=== PATIENT | female | born 1935 | race African-American/Black ===

== ENCOUNTER 2017-03-17 10:19 | Inpatient (IN) | payer MEDICARE, MEDICAID ==
[~2017-03-17] VITALS: Ht 162.6 cm; Wt 87.1 kg
[~2017-03-17 10:19] MED LIST: ACET-3161 PO; DOCU-150 PO; FERR-63 PO; LISI40TA4 PO; METF500T4 PO
[2017-03-17] MEDS ORDERED: FUROSEMIDE 40MG/4ML VIAL IV STA (10:51)
[2017-03-17 11:30] LABS: BASOPHILS % 1.2 % (0.0-2.0); EOSINOPHILS % 1.3 % (0.0-5.0); HEMATOCRIT. 30.6 % (36.0-48.0); LYMPHOCYTES % 10.7 % (20.0-50.0); MEAN CORPUSCULAR HEMOGLOBIN 28.1 pg (28.0-32.0); MEAN CORPUSCULAR VOLUME 86.5 fL (81.0-99.0); MONOCYTES % 6.3 % (2.0-8.0); NEUTROPHILS % 80.5 % (40.0-76.0); PLATELET 185 x1000/uL (130-400); RED BLOOD CELL COUNT 3.54 mill/uL (4.2-5.4); RED CELL DISTRIBUTION WIDTH 15.5 % (11.6-14.6)
[2017-03-17 11:38] LABS: CHLORIDE 110 mEq/L (98-107)
[2017-03-17 11:39] LABS: INR 1.1; PARTIAL THROMBOPLASTIN TIME 24.4 sec (23.4-31.0); PROTHROMBIN TIME 11.1 sec (9.4-11.6)
[2017-03-17 11:49] LABS: CARBON DIOXIDE 25 mEq/L (21-32); TROPONIN I < 0.02 ng/mL (0.00-0.04)
[2017-03-17] MEDS ORDERED: ACETAMINOPHEN 325MG TABLET PO ONE (14:00)
[2017-03-17 14:31] LABS: CLARITY URINE CLEAR (CLEAR); COLOR URINE YELLOW (YELLOW); GLUCOSE URINE NEGATIVE (NEGATIVE); KETONES URINE NEGATIVE (NEGATIVE); LEUKOCYTE ESTERASE URINE 3+ (NEGATIVE); NITRITE URINE POSITIVE (NEGATIVE); OCCULT BLOOD URINE TRACE (NEGATIVE); PROTEIN URINE NEGATIVE (NEGATIVE); SPECIFIC GRAVITY URINE 1.008 (1.005-1.030); UROBILINOGEN URINE 0.2 E.U./dL (0.2-1.0)
[2017-03-17] MEDS ORDERED: DILTIAZEM HCL 5MG/ML 5ML VIAL IV PRN (15:30)
[2017-03-17] MEDS ORDERED: DEXTROSE 50% WATER 50ML SYRINGE IV PRN (15:30)
[2017-03-17 16:30] VITALS: BP 113/65
[2017-03-17] MEDS ORDERED: DOCUSATE SODIUM 100MG CAPSULE PO PRN (16:45)
[2017-03-17] MEDS ORDERED: ONDANSETRON HCL 4MG/2ML VIAL IV PRN (17:00)
[2017-03-17] MEDS: BLOOD SUGAR DIAGNOSTIC STRIP TEST SCH ×3 (17:00→21:15)
[2017-03-17] MEDS ORDERED: ACETAMINOPHEN WITH CODEINE 300/30MG TABLET PO SCH (17:00)
[2017-03-17] MEDS: FERROUS SULFATE 325MG TABLET PO SCH (17:59)
[2017-03-17] MEDS: FUROSEMIDE 40MG/4ML VIAL IVP SCH (17:59)
[2017-03-17] MEDS: APIXABAN 5 MG TABLET PO SCH (17:59)
[2017-03-17] MEDS: INSULIN LISPRO 100 UNITS/ML SUBCUT SCH ×2 (18:07→21:15)
[2017-03-17 20:00] VITALS: BP 139/64
[2017-03-17] MEDS: CARVEDILOL 6.25 MG TABLET PO SCH (21:14)
[2017-03-17] MEDS: ATORVASTATIN CALCIUM 20MG TABLET PO SCH (21:14)
[2017-03-17] MEDS: LISINOPRIL 20MG TABLET PO SCH (21:14)
[2017-03-18] VITALS: BP 106/49
[2017-03-18 04:00] VITALS: BP 122/58
[2017-03-18] MEDS: BLOOD SUGAR DIAGNOSTIC STRIP TEST SCH ×3 (06:20→20:45)
[2017-03-18 07:18] VITALS: BP 105/66
[2017-03-18] MEDS: INSULIN LISPRO 100 UNITS/ML SUBCUT SCH ×3 (07:23→20:46)
[2017-03-18] MEDS: CARVEDILOL 6.25 MG TABLET PO SCH ×2 (09:00→20:44)
[2017-03-18] MEDS: LISINOPRIL 20MG TABLET PO SCH ×2 (09:00→20:44)
[2017-03-18] MEDS ORDERED: LISINOPRIL 40MG TABLET PO SCH (09:00)
[2017-03-18] MEDS ORDERED: ENOXAPARIN 40MG/0.4ML SYR SUBCUT ONE (09:00)
[2017-03-18 09:31] LABS: BASOPHILS % 1.2 % (0.0-2.0); HEMOGLOBIN. 10.2 g/dL (12.0-16.0); LYMPHOCYTES % 14.4 % (20.0-50.0); MEAN CORPUSCULAR VOLUME 87.8 fL (81.0-99.0); MEAN PLATELET VOLUME 9.5 fl (7.4-10.4); MONOCYTES % 7.9 % (2.0-8.0); NEUTROPHILS % 73.5 % (40.0-76.0); PLATELET 194 x1000/uL (130-400); RED BLOOD CELL COUNT 3.65 mill/uL (4.2-5.4); RED CELL DISTRIBUTION WIDTH 15.5 % (11.6-14.6)
[2017-03-18 09:56] LABS: CARBON DIOXIDE 27 mEq/L (21-32); TROPONIN I < 0.02 ng/mL (0.00-0.04)
[2017-03-18 09:57] LABS: CHLORIDE 107 mEq/L (98-107)
[2017-03-18] MEDS: OMEPRAZOLE 20MG CAPSULE EXTENDED RELEASE PO SCH (09:57)
[2017-03-18] MEDS: FUROSEMIDE 40MG/4ML VIAL IVP SCH ×2 (09:59→17:27)
[2017-03-18] MEDS: ASPIRIN 81MG EC TABLET PO SCH (09:59)
[2017-03-18] MEDS: FERROUS SULFATE 325MG TABLET PO SCH ×2 (09:59→17:27)
[2017-03-18] MEDS: APIXABAN 5 MG TABLET PO SCH ×2 (10:00→17:27)
[2017-03-18] MEDS: LACTULOSE 20G/30ML UDC PO SCH (10:03)
[2017-03-18] MEDS: LEVOFLOXACIN 500MG TABLET PO SCH (10:03)
[2017-03-18 12:00] VITALS: BP 145/64
[2017-03-18 16:00] VITALS: BP 136/52
[2017-03-18] MEDS: HYDROCODONE/ACETAMINOPHEN 5/325MG TABLET PO PRN (17:28)
[2017-03-18 20:00] VITALS: BP 127/57
[2017-03-18] MEDS: ATORVASTATIN CALCIUM 20MG TABLET PO SCH (20:44)
[2017-03-19] VITALS: BP 126/60
[2017-03-19 04:00] VITALS: BP 143/54
[2017-03-19 06:14] LABS: BASOPHILS % 0.9 % (0.0-2.0); EOSINOPHILS % 1.6 % (0.0-5.0); HEMATOCRIT. 28.9 % (36.0-48.0); HEMOGLOBIN. 9.3 g/dL (12.0-16.0); LYMPHOCYTES % 16.2 % (20.0-50.0); MEAN CORPUSCULAR VOLUME 86.8 fL (81.0-99.0); MEAN PLATELET VOLUME 9.1 fl (7.4-10.4); MONOCYTES % 8.9 % (2.0-8.0); NEUTROPHILS % 72.4 % (40.0-76.0); PLATELET 196 x1000/uL (130-400); RED BLOOD CELL COUNT 3.33 mill/uL (4.2-5.4); RED CELL DISTRIBUTION WIDTH 15.2 % (11.6-14.6)
[2017-03-19] MEDS: HYDROCODONE/ACETAMINOPHEN 5/325MG TABLET PO PRN ×2 (06:29→13:27)
[2017-03-19 06:39] LABS: CARBON DIOXIDE 29 mEq/L (21-32); CHLORIDE 107 mEq/L (98-107)
[2017-03-19] MEDS: BLOOD SUGAR DIAGNOSTIC STRIP TEST SCH ×4 (07:40→21:17)
[2017-03-19 08:00] VITALS: BP 113/48
[2017-03-19] MEDS: INSULIN LISPRO 100 UNITS/ML SUBCUT SCH ×4 (08:10→21:00)
[2017-03-19] MEDS: CARVEDILOL 6.25 MG TABLET PO SCH ×2 (09:07→21:00)
[2017-03-19] MEDS: ASPIRIN 81MG EC TABLET PO SCH (09:07)
[2017-03-19] MEDS: FERROUS SULFATE 325MG TABLET PO SCH ×4 (09:07→17:22)
[2017-03-19] MEDS: FUROSEMIDE 40MG/4ML VIAL IVP SCH ×2 (09:07→17:22)
[2017-03-19] MEDS: LISINOPRIL 20MG TABLET PO SCH ×2 (09:07→21:00)
[2017-03-19] MEDS: LACTULOSE 20G/30ML UDC PO SCH (09:07)
[2017-03-19] MEDS: APIXABAN 5 MG TABLET PO SCH ×2 (09:07→17:22)
[2017-03-19] MEDS: OMEPRAZOLE 20MG CAPSULE EXTENDED RELEASE PO SCH (09:08)
[2017-03-19 12:00] VITALS: BP 120/56
[2017-03-19] MEDS: LEVOFLOXACIN 500MG TABLET PO SCH (13:28)
[2017-03-19 16:00] VITALS: BP 112/52
[2017-03-19] MEDS: ACETAMINOPHEN 500MG TABLET PO PRN (17:22)
[2017-03-19 20:00] VITALS: BP 105/54
[2017-03-19] MEDS: ATORVASTATIN CALCIUM 20MG TABLET PO SCH (21:14)
[2017-03-20] VITALS: BP 118/64
[2017-03-20 04:00] VITALS: BP_SYST 146; BP_SYST 185; BP_DIAS 62; BP_DIAS 72
[2017-03-20 06:26] LABS: EOSINOPHILS % 0.2 % (0.0-5.0); HEMATOCRIT. 31.1 % (36.0-48.0); HEMOGLOBIN. 10.2 g/dL (12.0-16.0); MEAN CORPUSCULAR VOLUME 85.4 fL (81.0-99.0); MEAN PLATELET VOLUME 9.1 fl (7.4-10.4); MONOCYTES % 6.2 % (2.0-8.0); NEUTROPHILS % 79.6 % (40.0-76.0); PLATELET 217 x1000/uL (130-400); RED BLOOD CELL COUNT 3.64 mill/uL (4.2-5.4); RED CELL DISTRIBUTION WIDTH 15.3 % (11.6-14.6)
[2017-03-20 07:22] LABS: CARBON DIOXIDE 27 mEq/L (21-32); CHLORIDE 104 mEq/L (98-107)
[2017-03-20] MEDS: BLOOD SUGAR DIAGNOSTIC STRIP TEST SCH ×4 (07:43→20:35)
[2017-03-20 08:00] VITALS: BP 165/56
[2017-03-20] MEDS: FERROUS SULFATE 325MG TABLET PO SCH ×3 (08:51→17:52)
[2017-03-20] MEDS: OMEPRAZOLE 20MG CAPSULE EXTENDED RELEASE PO SCH (08:51)
[2017-03-20] MEDS: LISINOPRIL 20MG TABLET PO SCH ×2 (08:52→20:30)
[2017-03-20] MEDS: ASPIRIN 81MG EC TABLET PO SCH (08:52)
[2017-03-20] MEDS: CARVEDILOL 6.25 MG TABLET PO SCH ×2 (08:52→20:31)
[2017-03-20] MEDS: LACTULOSE 20G/30ML UDC PO SCH (08:53)
[2017-03-20] MEDS: FUROSEMIDE 40MG/4ML VIAL IVP SCH ×2 (08:53→17:52)
[2017-03-20] MEDS: APIXABAN 5 MG TABLET PO SCH ×2 (08:54→17:52)
[2017-03-20] MEDS: INSULIN LISPRO 100 UNITS/ML SUBCUT SCH ×4 (08:56→20:41)
[2017-03-20] MEDS: LEVOFLOXACIN 500MG TABLET PO SCH (10:06)
[2017-03-20] MEDS ORDERED: POTASSIUM CHLORIDE 20MEQ TABLET SR PO SCH (10:15)
[2017-03-20 12:00] VITALS: BP 114/66
[2017-03-20 16:00] VITALS: BP 157/56
[2017-03-20 20:00] VITALS: BP 137/56
[2017-03-20] MEDS: ATORVASTATIN CALCIUM 20MG TABLET PO SCH (20:30)
[2017-03-21] VITALS: BP 114/57
[2017-03-21 04:00] VITALS: BP 121/51
[2017-03-21] MEDS: ACETAMINOPHEN 500MG TABLET PO PRN (04:46)
[2017-03-21] MEDS: BLOOD SUGAR DIAGNOSTIC STRIP TEST SCH ×2 (06:04→13:12)
[2017-03-21 07:17] LABS: BASOPHILS % 2.1 % (0.0-2.0); EOSINOPHILS % 2.6 % (0.0-5.0); HEMATOCRIT. 30.2 % (36.0-48.0); HEMOGLOBIN. 9.9 g/dL (12.0-16.0); LYMPHOCYTES % 21.2 % (20.0-50.0); MEAN CORPUSCULAR HEMOGLOBIN 28.2 pg (28.0-32.0); MEAN CORPUSCULAR VOLUME 86.4 fL (81.0-99.0); MEAN PLATELET VOLUME 9.1 fl (7.4-10.4); MONOCYTES % 11.3 % (2.0-8.0); NEUTROPHILS % 62.8 % (40.0-76.0); PLATELET 182 x1000/uL (130-400); RED CELL DISTRIBUTION WIDTH 15.7 % (11.6-14.6)
[2017-03-21] MEDS: INSULIN LISPRO 100 UNITS/ML SUBCUT SCH ×2 (07:24→13:33)
[2017-03-21 07:36] VITALS: BP 124/62
[2017-03-21 07:47] LABS: CARBON DIOXIDE 31 mEq/L (21-32); CHLORIDE 105 mEq/L (98-107)
[2017-03-21] MEDS ORDERED: FAMOTIDINE 20MG TABLET PO SCH (09:00)
[2017-03-21] MEDS: APIXABAN 5 MG TABLET PO SCH (09:06)
[2017-03-21] MEDS: FUROSEMIDE 40MG/4ML VIAL IVP SCH (09:06)
[2017-03-21] MEDS: FERROUS SULFATE 325MG TABLET PO SCH ×2 (09:06→13:32)
[2017-03-21] MEDS: CARVEDILOL 6.25 MG TABLET PO SCH (09:06)
[2017-03-21] MEDS: LACTULOSE 20G/30ML UDC PO SCH (09:07)
[2017-03-21] MEDS: LISINOPRIL 20MG TABLET PO SCH (09:07)
[2017-03-21] MEDS: ASPIRIN 81MG EC TABLET PO SCH (09:07)
[2017-03-21] MEDS ORDERED: POTASSIUM CHLORIDE 20MEQ TABLET SR PO NR (10:30)
[2017-03-21] MEDS ORDERED: NITROFURANTOIN 100MG M/M CAPSULE PO SCH (11:00)
[2017-03-21 11:33] VITALS: BP 124/62
[2017-03-21 12:03] VITALS: BP 134/56
[2017-03-21 14:29] LABS: AMMONIA 49 uMol/L (<32)
[2017-03-22] MEDS ORDERED: POTASSIUM CHLORIDE 20MEQ TABLET SR PO SCH (09:00)
== END 2017-03-21 15:25 | disposition home health service (06) | DRG 291 ==
LOC: ER 12:47 → 7WST 14:51 → EDBEDREQ 14:52 → EDBEDREQTM 14:52 → ENRESERV 15:20
PROVIDERS: ADMIT Family Medicine Adult Medicine; ATTEND Family Medicine Adult Medicine
DX: I11.0 Hypertensive heart disease with heart failure (principal); J96.90 Respiratory failure, unspecified, unspecified whether with hypoxia or hypercapnia; E11.51 Type 2 diabetes mellitus with diabetic peripheral angiopathy without gangrene; I49.5 Sick sinus syndrome; R65.10 Systemic inflammatory response syndrome (SIRS) of non-infectious origin without acute organ dysfunction; E44.1 Mild protein-calorie malnutrition; I48.91 Unspecified atrial fibrillation; N39.0 Urinary tract infection, site not specified; I65.29 Occlusion and stenosis of unspecified carotid artery; I25.5 Ischemic cardiomyopathy; I25.10 Atherosclerotic heart disease of native coronary artery without angina pectoris; I50.23 Acute on chronic systolic (congestive) heart failure; I34.0 Nonrheumatic mitral (valve) insufficiency; D50.9 Iron deficiency anemia, unspecified; J45.909 Unspecified asthma, uncomplicated; B96.20 Unspecified Escherichia coli [E. coli] as the cause of diseases classified elsewhere; E78.00 Pure hypercholesterolemia, unspecified; E78.5 Hyperlipidemia, unspecified; I25.2 Old myocardial infarction; Z86.73 Personal history of transient ischemic attack (TIA), and cerebral infarction without residual deficits; Z95.810 Presence of automatic (implantable) cardiac defibrillator; Z89.512 Acquired absence of left leg below knee; Z89.612 Acquired absence of left leg above knee; Z95.1 Presence of aortocoronary bypass graft; Z68.33 Body mass index [BMI] 33.0-33.9, adult; Z79.01 Long term (current) use of anticoagulants
CPT/HCPCS: 36415; 51702; 71010; 80048; 80053; 81001; 82140; 82962; 83605; 83735; 83880; 84484; 85025; 85610; 85730; 87040; 87077; 87086; 87186; 93005; 96374; 99285; A6261; C1893; J1815; J1940

== ENCOUNTER → 2017-05-02 | Outpatient (CLI) | payer MEDICARE, MEDICAID | END | disposition home or self-care (01) | LOC: RAD 12:31 | PROVIDERS: ATTEND Specialist | DX: J90 Pleural effusion, not elsewhere classified (principal) | CPT/HCPCS: 71010 ==

== ENCOUNTER 2017-05-06 10:03 | Inpatient (IN) | payer MEDICARE, MEDICAID ==
[~2017-05-06] VITALS: Ht 162.6 cm; Wt 85.7 kg
[2017-05-06] MEDS ORDERED: ASPIRIN 81MG TABLET PO STA (10:13)
[2017-05-06] MEDS ORDERED: ONDANSETRON HCL 4MG/2ML VIAL IV STA (10:13)
[2017-05-06] MEDS ORDERED: MORPHINE SULFATE 4 MG/ML CPJ (NOT FOR IM USE) IV STA (10:13)
[2017-05-06] MEDS ORDERED: NITROGLYCERIN OINT 1GM/INCH UDPKT TD STA (10:13)
[2017-05-06] MEDS ORDERED: MORPHINE SULFATE 2 MG/ML CPJ (NOT FOR IM USE) IV ONE (10:45)
[2017-05-06 10:51] LABS: BASOPHILS % 1.4 % (0.0-2.0); HEMATOCRIT. 30.4 % (36.0-48.0); HEMOGLOBIN. 9.9 g/dL (12.0-16.0); LYMPHOCYTES % 14.6 % (20.0-50.0); MEAN CORPUSCULAR VOLUME 85.9 fL (81.0-99.0); MEAN PLATELET VOLUME 8.7 fl (7.4-10.4); MONOCYTES % 7.9 % (2.0-8.0); NEUTROPHILS % 74.1 % (40.0-76.0); PLATELET 218 x1000/uL (130-400); RED BLOOD CELL COUNT 3.54 mill/uL (4.2-5.4); RED CELL DISTRIBUTION WIDTH 15.7 % (11.6-14.6)
[2017-05-06 11:04] LABS: INR 1.1; PARTIAL THROMBOPLASTIN TIME 24.7 sec (23.4-31.0)
[2017-05-06 11:09] LABS: CARBON DIOXIDE 26 mEq/L (21-32); CHLORIDE 110 mEq/L (98-107); TROPONIN I < 0.02 ng/mL (0.00-0.04)
[2017-05-06] MEDS ORDERED: FUROSEMIDE 20MG/2ML VIAL IVP ONE (11:30)
[2017-05-06 14:10] VITALS: BP 135/71
[2017-05-06 14:30] VITALS: BP 135/71
[2017-05-06] MEDS ORDERED: ONDANSETRON HCL 4MG/2ML VIAL IV PRN (16:15)
[2017-05-06] MEDS ORDERED: CLONIDINE 0.1MG TABLET PO PRN (16:15)
[2017-05-06] MEDS ORDERED: HYDROCODONE/ACETAMINOPHEN 5/325MG TABLET PO PRN (16:15)
[2017-05-06] MEDS ORDERED: LORAZEPAM 2MG/ML CPJ IV PRN (16:15)
[2017-05-06] MEDS ORDERED: MORPHINE SULFATE 2 MG/ML CPJ (NOT FOR IM USE) IV PRN (16:15)
[2017-05-06] MEDS: ACETAMINOPHEN 325MG TABLET PO PRN (18:10)
[2017-05-06 20:00] VITALS: BP 132/73
[2017-05-06 23:18] LABS: CREATINE KINASE 19 IU/L (26-192); CREATINE KINASE MB FRACTION 0.8 ng/mL (0.5-3.6); TROPONIN I < 0.02 ng/mL (0.00-0.04)
[2017-05-07] VITALS: BP 144/72
[2017-05-07 04:00] VITALS: BP 118/80
[2017-05-07] MEDS: ACETAMINOPHEN 325MG TABLET PO PRN (04:14)
[2017-05-07] MEDS: ACETAMINOPHEN WITH CODEINE 300/30MG TABLET PO PRN ×2 (07:14→16:21)
[2017-05-07 08:00] VITALS: BP 116/46
[2017-05-07 08:04] LABS: CREATINE KINASE 18 IU/L (26-192); HDL CHOLESTEROL 34 mg/dL (40-59); LDL CHOLESTEROL 40 mg/dL (5-100)
[2017-05-07 08:05] LABS: CREATINE KINASE MB FRACTION 0.8 ng/mL (0.5-3.6); TROPONIN I < 0.02 ng/mL (0.00-0.04)
[2017-05-07] MEDS: METFORMIN HCL 500MG TABLET PO SCH ×2 (08:14→17:40)
[2017-05-07] MEDS: THIAMINE HCL 100MG TABLET PO SCH (08:19)
[2017-05-07] MEDS: ASPIRIN 81MG EC TABLET PO SCH (08:19)
[2017-05-07] MEDS: FERROUS SULFATE 325MG TABLET PO SCH (08:20)
[2017-05-07] MEDS: LISINOPRIL 40MG TABLET PO SCH (08:20)
[2017-05-07] MEDS ORDERED: REGADENOSON 0.4 MG/5 ML IV NR (09:00)
[2017-05-07 10:05] LABS: CLARITY URINE CLOUDY (CLEAR); COLOR URINE YELLOW (YELLOW); GLUCOSE URINE NEGATIVE (NEGATIVE); KETONES URINE NEGATIVE (NEGATIVE); LEUKOCYTE ESTERASE URINE 1+ (NEGATIVE); NITRITE URINE NEGATIVE (NEGATIVE); OCCULT BLOOD URINE 3+ (NEGATIVE); PROTEIN URINE 2+ (NEGATIVE); SPECIFIC GRAVITY URINE 1.023 (1.005-1.030)
[2017-05-07] MEDS ORDERED: DEXTROSE 50% WATER 50ML SYRINGE IV PRN (11:00)
[2017-05-07 12:00] VITALS: BP 110/45
[2017-05-07] MEDS: BLOOD SUGAR DIAGNOSTIC STRIP TEST SCH ×3 (12:25→20:24)
[2017-05-07] MEDS: INSULIN LISPRO 100 UNITS/ML SUBCUT SCH ×3 (12:40→20:24)
[2017-05-07 15:58] VITALS: BP 119/51
[2017-05-07 20:00] VITALS: BP 149/70
[2017-05-08] VITALS: BP 151/72
[2017-05-08 04:00] VITALS: BP 154/60
[2017-05-08] MEDS: ACETAMINOPHEN WITH CODEINE 300/30MG TABLET PO PRN (06:27)
[2017-05-08] MEDS: BLOOD SUGAR DIAGNOSTIC STRIP TEST SCH ×4 (06:27→20:45)
[2017-05-08] MEDS: INSULIN LISPRO 100 UNITS/ML SUBCUT SCH ×4 (06:29→21:22)
[2017-05-08 07:30] VITALS: BP 151/61
[2017-05-08] MEDS: METFORMIN HCL 500MG TABLET PO SCH ×2 (07:35→17:40)
[2017-05-08 07:40] LABS: BASOPHILS % 1.2 % (0.0-2.0); EOSINOPHILS % 1.2 % (0.0-5.0); HEMATOCRIT. 29.1 % (36.0-48.0); HEMOGLOBIN. 9.5 g/dL (12.0-16.0); LYMPHOCYTES % 15.5 % (20.0-50.0); MEAN CORPUSCULAR HEMOGLOBIN 28.3 pg (28.0-32.0); MEAN CORPUSCULAR VOLUME 86.4 fL (81.0-99.0); MEAN PLATELET VOLUME 9.1 fl (7.4-10.4); MONOCYTES % 6.4 % (2.0-8.0); NEUTROPHILS % 75.7 % (40.0-76.0); PLATELET 200 x1000/uL (130-400); RED BLOOD CELL COUNT 3.37 mill/uL (4.2-5.4); RED CELL DISTRIBUTION WIDTH 15.3 % (11.6-14.6)
[2017-05-08 08:21] LABS: CARBON DIOXIDE 25 mEq/L (21-32); CHLORIDE 108 mEq/L (98-107)
[2017-05-08 08:38] LABS: TROPONIN I < 0.02 ng/mL (0.00-0.04)
[2017-05-08] MEDS: ASPIRIN 81MG EC TABLET PO SCH (09:23)
[2017-05-08] MEDS: THIAMINE HCL 100MG TABLET PO SCH (09:23)
[2017-05-08] MEDS: FERROUS SULFATE 325MG TABLET PO SCH (09:23)
[2017-05-08] MEDS: LISINOPRIL 40MG TABLET PO SCH (09:23)
[2017-05-08 12:00] VITALS: BP 119/51
[2017-05-08 16:00] VITALS: BP 125/58
[2017-05-08 20:00] VITALS: BP 125/54
[2017-05-09] VITALS: BP 154/67
[2017-05-09 04:00] VITALS: BP 144/70
[2017-05-09] MEDS: BLOOD SUGAR DIAGNOSTIC STRIP TEST SCH ×3 (06:17→17:32)
[2017-05-09] MEDS: INSULIN LISPRO 100 UNITS/ML SUBCUT SCH ×3 (06:19→17:32)
[2017-05-09 07:04] LABS: BASOPHILS % 1.3 % (0.0-2.0); EOSINOPHILS % 1.8 % (0.0-5.0); HEMATOCRIT. 29.1 % (36.0-48.0); HEMOGLOBIN. 9.3 g/dL (12.0-16.0); LYMPHOCYTES % 16.9 % (20.0-50.0); MEAN CORPUSCULAR HEMOGLOBIN 27.7 pg (28.0-32.0); MEAN CORPUSCULAR VOLUME 86.5 fL (81.0-99.0); MEAN PLATELET VOLUME 8.9 fl (7.4-10.4); MONOCYTES % 8.8 % (2.0-8.0); NEUTROPHILS % 71.2 % (40.0-76.0); PLATELET 195 x1000/uL (130-400); RED BLOOD CELL COUNT 3.36 mill/uL (4.2-5.4); RED CELL DISTRIBUTION WIDTH 15.2 % (11.6-14.6)
[2017-05-09] MEDS: METFORMIN HCL 500MG TABLET PO SCH (07:40)
[2017-05-09 07:42] LABS: CARBON DIOXIDE 28 mEq/L (21-32); CHLORIDE 108 mEq/L (98-107); TROPONIN I < 0.02 ng/mL (0.00-0.04)
[2017-05-09 08:00] VITALS: BP 151/74
[2017-05-09] MEDS: THIAMINE HCL 100MG TABLET PO SCH (10:14)
[2017-05-09] MEDS: FERROUS SULFATE 325MG TABLET PO SCH (10:14)
[2017-05-09] MEDS: LISINOPRIL 40MG TABLET PO SCH (10:15)
[2017-05-09] MEDS: ASPIRIN 81MG EC TABLET PO SCH (10:15)
[2017-05-09] MEDS ORDERED: REGADENOSON 0.4 MG/5 ML IV ONE (12:34)
[2017-05-09 16:00] VITALS: BP 123/55
[2017-05-09 17:32] VITALS: BP 123/55
== END 2017-05-09 18:27 | disposition home or self-care (01) | DRG 292 ==
LOC: ER 11:15 → 8WST 11:16 → EDBEDREQ 11:21 → ENRESERV 13:08 → CANBEDREQ 13:19
PROVIDERS: ADMIT Internal Medicine Nephrology; ATTEND Internal Medicine Nephrology
DX: I11.0 Hypertensive heart disease with heart failure (principal); E44.1 Mild protein-calorie malnutrition; I27.20 Pulmonary hypertension, unspecified; E11.51 Type 2 diabetes mellitus with diabetic peripheral angiopathy without gangrene; I49.5 Sick sinus syndrome; I25.10 Atherosclerotic heart disease of native coronary artery without angina pectoris; I50.43 Acute on chronic combined systolic (congestive) and diastolic (congestive) heart failure; I25.5 Ischemic cardiomyopathy; I48.91 Unspecified atrial fibrillation; D50.9 Iron deficiency anemia, unspecified; E78.5 Hyperlipidemia, unspecified; I25.2 Old myocardial infarction; I34.0 Nonrheumatic mitral (valve) insufficiency; J45.909 Unspecified asthma, uncomplicated; Z86.73 Personal history of transient ischemic attack (TIA), and cerebral infarction without residual deficits; Z89.612 Acquired absence of left leg above knee; Z95.1 Presence of aortocoronary bypass graft; Z95.810 Presence of automatic (implantable) cardiac defibrillator; Z79.899 Other long term (current) drug therapy; Z68.32 Body mass index [BMI] 32.0-32.9, adult; Z89.512 Acquired absence of left leg below knee; R07.89 Other chest pain
CPT/HCPCS: 36415; 51702; 71010; 78452; 80048; 80053; 80061; 81001; 82550; 82553; 82962; 83690; 83735; 83880; 84100; 84443; 84484; 85025; 85610; 85730; 93005; 93017; 93306; 96374; 96375; 97163; 97166; 99291; A6261; A9500; J1815; J1940; J2060; J2270; J2405; J2785; A4315

== ENCOUNTER 2017-09-19 10:12 | Inpatient (IN) | payer MEDICARE, MEDICAID ==
[~2017-09-19] VITALS: Ht 157.5 cm; Wt 96.8 kg
[~2017-09-19 10:12] MED LIST changes: -DOCU-150 PO
[2017-09-19 10:53] LABS: BG BASE EXCESS 0.9 mmol/L (-2.0-2.0); BG CARBOXYHEMOGLOBIN 0.8 % (0.5-1.5); BG DEOXYHEMOGLOBIN 8.3 % (0.0-5.0); BG FRACTION INSPIRED OXYGEN 34; BG METHEMOGLOBIN 0.2 % (0.0-1.5); BG OXYGEN SATURATION 91.6 % (92.0-98.5); BG OXYHEMOGLOBIN 90.7 % (94.0-97.0); BG PCO2 58.3 mmHg (35.0-45.0); BG PH 7.299 (7.350-7.450); BG PO2 66.9 mmHg (75.0-100.0); BG SAMPLE SITE RIGHT BRACHIAL; BG TOTAL HEMOGLOBIN 9.4 g/dL (12.0-18.0); BG VENT MODE NASAL CANNULA
[2017-09-19 11:23] LABS: HEMOGLOBIN. 8.3 g/dL (12.0-16.0); MEAN CORPUSCULAR HEMOGLOBIN 28.1 pg (28.0-32.0); MEAN CORPUSCULAR VOLUME 88.6 fL (81.0-99.0); MEAN PLATELET VOLUME 9.1 fl (7.4-10.4); PLATELET 255 x1000/uL (130-400); RED BLOOD CELL COUNT 2.94 mill/uL (4.2-5.4); RED CELL DISTRIBUTION WIDTH 17.5 % (11.6-14.6)
[2017-09-19 11:29] LABS: INR 1.4; PROTHROMBIN TIME 14.8 sec (9.4-11.6)
[2017-09-19 11:35] LABS: CHLORIDE 103 mEq/L (98-107)
[2017-09-19 11:42] LABS: TROPONIN I < 0.02 ng/mL (0.00-0.04)
[2017-09-19] MEDS ORDERED: FUROSEMIDE 20MG/2ML VIAL IVP ONE (11:45)
[2017-09-19] MEDS ORDERED: ENALAPRIL 2.5MG/2ML VIAL 2ML IV ONE (11:45)
[2017-09-19 12:12] LABS: PLATELET ESTIMATE NORMAL
[2017-09-19] MEDS ORDERED: ACETAMINOPHEN 325MG TABLET PO ONE (14:00)
[2017-09-19] MEDS ORDERED: DOCUSATE SODIUM 100MG CAPSULE PO PRN (14:15)
[2017-09-19] MEDS ORDERED: MAGNESIUM/ALUMINUM HYDROXIDE/SIMETHICONE 30ML UDC PO PRN (14:15)
[2017-09-19] MEDS ORDERED: GUAIFENESIN 200MG/10ML SUGAR FREE UDC PO PRN (14:15)
[2017-09-19] MEDS ORDERED: IPRATROPIUM/ALBUTEROL 0.5-3(2.5)MG/3ML NEB INH PRN (14:15)
[2017-09-19] MEDS ORDERED: ONDANSETRON HCL 4MG/2ML VIAL IV PRN (14:15)
[2017-09-19] MEDS ORDERED: DEXTROSE 50% WATER 50ML SYRINGE IV PRN (14:15)
[2017-09-19 19:57] LABS: BG BILEVEL POS AIRWAY PRESSURE 15/5; BG CARBOXYHEMOGLOBIN 0.2 % (0.5-1.5); BG DEOXYHEMOGLOBIN 1.2 % (0.0-5.0); BG FRACTION INSPIRED OXYGEN 50; BG HCO3 ACT 30.6 mmol/L (22.0-26.0); BG METHEMOGLOBIN 0.4 % (0.0-1.5); BG OXYGEN SATURATION 98.8 % (92.0-98.5); BG OXYHEMOGLOBIN 98.2 % (94.0-97.0); BG PCO2 57.9 mmHg (35.0-45.0); BG PH 7.341 (7.350-7.450); BG PO2 155.8 mmHg (75.0-100.0); BG SAMPLE SITE RIGHT BRACHIAL; BG TOTAL HEMOGLOBIN 8.9 g/dL (12.0-18.0); BG VENT MODE MASK - BIPAP
[2017-09-19 20:42] VITALS: BP 157/71
[2017-09-19] MEDS ORDERED: ZOLPIDEM TARTRATE 5MG TABLET PO PRN (21:00)
[2017-09-19 22:00] VITALS: BP_SYST 143; BP_SYST 157; BP_DIAS 71; BP_DIAS 74
[2017-09-19] MEDS ORDERED: LISINOPRIL 10MG TABLET PO SCH (22:00)
[2017-09-19 22:08] LABS: HEMATOCRIT 27.2 % (36.0-48.0); HEMOGLOBIN 8.4 g/dL (12.0-16.0)
[2017-09-19] MEDS: OMEPRAZOLE 20MG CAPSULE EXTENDED RELEASE PO SCH (22:22)
[2017-09-19] MEDS: ATORVASTATIN CALCIUM 40MG TABLET PO SCH (22:22)
[2017-09-19] MEDS: CARVEDILOL 3.125 MG TABLET PO SCH (22:22)
[2017-09-20] VITALS (13 sets, daily range): BP systolic 111–162; BP diastolic 52–83
[2017-09-20] MEDS: ACETAMINOPHEN 325MG TABLET PO PRN (04:23)
[2017-09-20 04:38] LABS: CHLORIDE 104 mEq/L (98-107)
[2017-09-20 04:44] LABS: TROPONIN I < 0.02 ng/mL (0.00-0.04)
[2017-09-20 06:34] LABS: EOSINOPHILS % 0.8 % (0.0-5.0); HEMATOCRIT. 25.2 % (36.0-48.0); LYMPHOCYTES % 12.9 % (20.0-50.0); MEAN CORPUSCULAR HEMOGLOBIN 28.5 pg (28.0-32.0); MEAN PLATELET VOLUME 9.7 fl (7.4-10.4); MONOCYTES % 12.9 % (2.0-8.0); NEUTROPHILS % 72.4 % (40.0-76.0); PLATELET 209 x1000/uL (130-400); RED CELL DISTRIBUTION WIDTH 17.9 % (11.6-14.6)
[2017-09-20 07:08] LABS: BG BASE EXCESS 3.1 mmol/L (-2.0-2.0); BG CARBOXYHEMOGLOBIN 0.8 % (0.5-1.5); BG DEOXYHEMOGLOBIN 4.8 % (0.0-5.0); BG HCO3 ACT 29.7 mmol/L (22.0-26.0); BG METHEMOGLOBIN 0.3 % (0.0-1.5); BG OXYGEN SATURATION 95.1 % (92.0-98.5); BG OXYHEMOGLOBIN 94.1 % (94.0-97.0); BG PCO2 57.9 mmHg (35.0-45.0); BG PH 7.328 (7.350-7.450); BG PO2 81.3 mmHg (75.0-100.0); BG SAMPLE SITE RIGHT BRACHIAL; BG TOTAL HEMOGLOBIN 8.1 g/dL (12.0-18.0); BG VENT MODE NASAL CANNULA
[2017-09-20] MEDS: INSULIN LISPRO 100 UNITS/ML SUBCUT SCH ×4 (08:00→20:30)
[2017-09-20] MEDS: BLOOD SUGAR DIAGNOSTIC STRIP TEST SCH ×4 (08:14→20:29)
[2017-09-20] MEDS: OMEPRAZOLE 20MG CAPSULE EXTENDED RELEASE PO SCH (08:14)
[2017-09-20] MEDS: CARVEDILOL 3.125 MG TABLET PO SCH ×2 (08:15→20:29)
[2017-09-20] MEDS ORDERED: FUROSEMIDE 40MG/4ML VIAL IVP SCH (09:00)
[2017-09-20] MEDS: IPRATROPIUM/ALBUTEROL 0.5-3(2.5)MG/3ML NEB INH SCH ×3 (09:36→21:04)
[2017-09-20] MEDS: TRAMADOL 50MG TABLET PO PRN ×2 (10:42→17:28)
[2017-09-20] MEDS: AMLODIPINE 5MG TABLET PO SCH ×2 (12:43→20:29)
[2017-09-20 13:48] LABS: HEMATOCRIT 25.2 % (36.0-48.0); HEMOGLOBIN 7.8 g/dL (12.0-16.0)
[2017-09-20 19:41] LABS: HEMATOCRIT 24.9 % (36.0-48.0); HEMOGLOBIN 7.9 g/dL (12.0-16.0)
[2017-09-20] MEDS: ATORVASTATIN CALCIUM 40MG TABLET PO SCH (20:28)
[2017-09-21] VITALS (17 sets, daily range): BP systolic 115–134; BP diastolic 50–72
[2017-09-21] MEDS: ACETAMINOPHEN 325MG TABLET PO PRN ×2 (00:13→20:45)
[2017-09-21 01:30] LABS: HEMATOCRIT 23.4 % (36.0-48.0); HEMOGLOBIN 7.4 g/dL (12.0-16.0)
[2017-09-21] MEDS: IPRATROPIUM/ALBUTEROL 0.5-3(2.5)MG/3ML NEB INH SCH ×4 (03:23→19:51)
[2017-09-21] MEDS: BLOOD SUGAR DIAGNOSTIC STRIP TEST SCH ×3 (07:55→20:28)
[2017-09-21] MEDS: INSULIN LISPRO 100 UNITS/ML SUBCUT SCH ×3 (07:55→20:29)
[2017-09-21] MEDS: AMLODIPINE 5MG TABLET PO SCH ×2 (08:19→20:46)
[2017-09-21] MEDS: FAMOTIDINE 20MG TABLET PO SCH (08:19)
[2017-09-21] MEDS: CARVEDILOL 3.125 MG TABLET PO SCH ×2 (08:20→20:44)
[2017-09-21 10:05] LABS: INR 1.1; PARTIAL THROMBOPLASTIN TIME 25.9 sec (23.4-31.0); PROTHROMBIN TIME 11.9 sec (9.4-11.6)
[2017-09-21 10:07] LABS: BASOPHILS % 1.5 % (0.0-2.0); EOSINOPHILS % 1.7 % (0.0-5.0); HEMATOCRIT. 27.6 % (36.0-48.0); HEMOGLOBIN. 8.8 g/dL (12.0-16.0); LYMPHOCYTES % 11.5 % (20.0-50.0); MEAN CORPUSCULAR VOLUME 87.3 fL (81.0-99.0); MONOCYTES % 11.3 % (2.0-8.0); PLATELET 205 x1000/uL (130-400); RED BLOOD CELL COUNT 3.16 mill/uL (4.2-5.4); RED CELL DISTRIBUTION WIDTH 17.4 % (11.6-14.6)
[2017-09-21] MEDS ORDERED: FUROSEMIDE 40MG/4ML VIAL IVP SCH (14:00)
[2017-09-21] MEDS: ATORVASTATIN CALCIUM 40MG TABLET PO SCH (20:45)
[2017-09-22] VITALS (12 sets, daily range): BP systolic 99–150; BP diastolic 53–83
[2017-09-22] MEDS: IPRATROPIUM/ALBUTEROL 0.5-3(2.5)MG/3ML NEB INH SCH ×4 (01:41→20:00)
[2017-09-22 06:12] LABS: BASOPHILS % 0.9 % (0.0-2.0); EOSINOPHILS % 2.9 % (0.0-5.0); HEMATOCRIT. 28.8 % (36.0-48.0); HEMOGLOBIN. 9.1 g/dL (12.0-16.0); LYMPHOCYTES % 8.2 % (20.0-50.0); MEAN CORPUSCULAR HEMOGLOBIN 27.9 pg (28.0-32.0); MEAN CORPUSCULAR VOLUME 88.5 fL (81.0-99.0); MEAN PLATELET VOLUME 9.5 fl (7.4-10.4); MONOCYTES % 8.8 % (2.0-8.0); NEUTROPHILS % 79.2 % (40.0-76.0); PLATELET 238 x1000/uL (130-400); RED BLOOD CELL COUNT 3.25 mill/uL (4.2-5.4); RED CELL DISTRIBUTION WIDTH 17.5 % (11.6-14.6)
[2017-09-22] MEDS: BLOOD SUGAR DIAGNOSTIC STRIP TEST SCH ×4 (07:30→20:39)
[2017-09-22] MEDS: FAMOTIDINE 20MG TABLET PO SCH (07:30)
[2017-09-22] MEDS: INSULIN LISPRO 100 UNITS/ML SUBCUT SCH ×4 (08:00→20:40)
[2017-09-22] MEDS: AMLODIPINE 5MG TABLET PO SCH ×2 (09:00→20:24)
[2017-09-22] MEDS: CARVEDILOL 3.125 MG TABLET PO SCH ×2 (09:00→20:25)
[2017-09-22 10:21] LABS: A/G RATIO 1.2 (0.7-1.7); ALPHA-1-GLOBULIN 0.2 g/dL (0.0-0.4); ALPHA-2-GLOBULIN 0.6 g/dL (0.4-1.0); BETA GLOBULIN 0.6 g/dL (0.7-1.3); GAMMA GLOBULINS 1.1 g/dL (0.4-1.8); GLOBULIN TOTAL 2.5 g/dL (2.2-3.9); M-SPIKE 0.5 g/dL (Not Observed); TOTAL PROTEIN SERUM 5.5 g/dL (6.0-8.5)
[2017-09-22] MEDS ORDERED: FENTANYL CITRATE/PF 50MCG/ML 2ML VIAL ONE (10:27)
[2017-09-22] MEDS ORDERED: MIDAZOLAM HCL 5 MG/5 ML VIAL ONE (10:27)
[2017-09-22] MEDS ORDERED: SIMETHICONE 40 MG/0.6 ML 30ML ONE (10:30)
[2017-09-22] MEDS ORDERED: BACTERIOSTATIC SODIUM CHLORIDE 0.9% 30ML VIAL IJ ONE (13:28)
[2017-09-22] MEDS ORDERED: FENTANYL CITRATE/PF 50MCG/ML 2ML VIAL IV PRN (14:02)
[2017-09-22] MEDS ORDERED: MIDAZOLAM HCL 2 MG/2 ML VIAL IV PRN (14:04)
[2017-09-22] MEDS ORDERED: SODIUM BICARBONATE 7.5% 0.9 MEQ/ML 50ML SYR IV ONE (16:00)
[2017-09-22] MEDS ORDERED: CALCIUM CHLORIDE 1GM/10ML SYR IV ONE (16:00)
[2017-09-22] MEDS ORDERED: EPINEPHRINE 0.1MG/ML (1:10,000) 10ML SYR ONE (16:00)
[2017-09-22] MEDS ORDERED: MAGNESIUM SULFATE 4G IN WATER 100ML PREMIX IV ONE (16:00)
[2017-09-22] MEDS ORDERED: AMIODARONE HCL 50MG/ML 3ML VIAL IV ONE (16:00)
[2017-09-22] MEDS ORDERED: MIDAZOLAM HCL 5 MG/5 ML VIAL IV PRN (16:15)
[2017-09-22 19:07] LABS: ANTI-NUCLEAR ANTIBODIES DIRECT Negative (Negative)
[2017-09-22] MEDS: TRAMADOL 50MG TABLET PO PRN (19:47)
[2017-09-22] MEDS: ATORVASTATIN CALCIUM 40MG TABLET PO SCH (20:24)
[2017-09-23] VITALS (17 sets, daily range): BP systolic 101–145; BP diastolic 49–77
[2017-09-23] MEDS: IPRATROPIUM/ALBUTEROL 0.5-3(2.5)MG/3ML NEB INH SCH ×2 (01:40→21:31)
[2017-09-23] MEDS: ACETAMINOPHEN 325MG TABLET PO PRN (03:54)
[2017-09-23 07:00] LABS: BASOPHILS % 0.8 % (0.0-2.0); EOSINOPHILS % 1.6 % (0.0-5.0); HEMATOCRIT. 28.2 % (36.0-48.0); HEMOGLOBIN. 9.1 g/dL (12.0-16.0); LYMPHOCYTES % 9.1 % (20.0-50.0); MEAN CORPUSCULAR HEMOGLOBIN 28.4 pg (28.0-32.0); MEAN CORPUSCULAR VOLUME 87.6 fL (81.0-99.0); MEAN PLATELET VOLUME 9.1 fl (7.4-10.4); MONOCYTES % 10.2 % (2.0-8.0); NEUTROPHILS % 78.3 % (40.0-76.0); PLATELET 221 x1000/uL (130-400); RED BLOOD CELL COUNT 3.22 mill/uL (4.2-5.4); RED CELL DISTRIBUTION WIDTH 17.6 % (11.6-14.6)
[2017-09-23] MEDS: FAMOTIDINE 20MG TABLET PO SCH (07:00)
[2017-09-23] MEDS: INSULIN LISPRO 100 UNITS/ML SUBCUT SCH ×4 (08:00→20:49)
[2017-09-23] MEDS: BLOOD SUGAR DIAGNOSTIC STRIP TEST SCH ×4 (08:04→20:49)
[2017-09-23] MEDS: CARVEDILOL 3.125 MG TABLET PO SCH ×2 (09:46→20:48)
[2017-09-23] MEDS: AMLODIPINE 5MG TABLET PO SCH ×2 (09:46→20:48)
[2017-09-23] MEDS: TRAMADOL 50MG TABLET PO PRN (12:03)
[2017-09-23] MEDS ORDERED: BISACODYL 10MG SUPP PR PRN (13:00)
[2017-09-23 13:07] LABS: COMPLEMENT C3 98 mg/dL (82-167)
[2017-09-23] MEDS: DOCUSATE SODIUM 100MG CAPSULE PO SCH ×2 (13:37→17:00)
[2017-09-23] MEDS: ATORVASTATIN CALCIUM 40MG TABLET PO SCH (20:48)
[2017-09-24] VITALS (12 sets, daily range): BP systolic 113–135; BP diastolic 49–72
[2017-09-24] MEDS: IPRATROPIUM/ALBUTEROL 0.5-3(2.5)MG/3ML NEB INH SCH ×4 (03:22→21:11)
[2017-09-24 07:14] LABS: BASOPHILS % 0.7 % (0.0-2.0); EOSINOPHILS % 1.2 % (0.0-5.0); HEMATOCRIT. 27.7 % (36.0-48.0); HEMOGLOBIN. 8.7 g/dL (12.0-16.0); LYMPHOCYTES % 8.1 % (20.0-50.0); MEAN CORPUSCULAR HEMOGLOBIN 28.2 pg (28.0-32.0); MEAN CORPUSCULAR VOLUME 89.6 fL (81.0-99.0); MEAN PLATELET VOLUME 9.1 fl (7.4-10.4); PLATELET 223 x1000/uL (130-400); RED CELL DISTRIBUTION WIDTH 17.9 % (11.6-14.6)
[2017-09-24] MEDS: BLOOD SUGAR DIAGNOSTIC STRIP TEST SCH ×4 (07:30→21:31)
[2017-09-24] MEDS: INSULIN LISPRO 100 UNITS/ML SUBCUT SCH ×4 (07:40→21:32)
[2017-09-24] MEDS: FAMOTIDINE 20MG TABLET PO SCH (07:46)
[2017-09-24] MEDS: AMLODIPINE 5MG TABLET PO SCH ×3 (09:00→21:29)
[2017-09-24] MEDS ORDERED: NA PHOS,M-B/NA PHOS,DI-BA ENEMA 118ML PR NR (09:15)
[2017-09-24] MEDS: DOCUSATE SODIUM 100MG CAPSULE PO SCH ×2 (09:16→17:39)
[2017-09-24] MEDS: CARVEDILOL 3.125 MG TABLET PO SCH ×2 (09:16→21:31)
[2017-09-24] MEDS: ATORVASTATIN CALCIUM 40MG TABLET PO SCH (21:29)
[2017-09-25] VITALS (16 sets, daily range): BP systolic 50–164; BP diastolic 34–74
[2017-09-25] MEDS: IPRATROPIUM/ALBUTEROL 0.5-3(2.5)MG/3ML NEB INH SCH ×2 (01:27→08:05)
[2017-09-25] MEDS: FAMOTIDINE 20MG TABLET PO SCH ×2 (07:30→08:23)
[2017-09-25] MEDS: BLOOD SUGAR DIAGNOSTIC STRIP TEST SCH (08:10)
[2017-09-25] MEDS: INSULIN LISPRO 100 UNITS/ML SUBCUT SCH ×2 (08:32→12:00)
[2017-09-25 08:35] LABS: HEMATOCRIT. 28.5 % (36.0-48.0); HEMOGLOBIN. 8.9 g/dL (12.0-16.0); MEAN CORPUSCULAR HEMOGLOBIN 28.7 pg (28.0-32.0); MEAN PLATELET VOLUME 9.2 fl (7.4-10.4); PLATELET 233 x1000/uL (130-400); RED CELL DISTRIBUTION WIDTH 18.2 % (11.6-14.6)
[2017-09-25] MEDS: AMLODIPINE 5MG TABLET PO SCH (09:00)
[2017-09-25] MEDS: CARVEDILOL 3.125 MG TABLET PO SCH (09:00)
[2017-09-25] MEDS: DOCUSATE SODIUM 100MG CAPSULE PO SCH (09:00)
[2017-09-25 09:27] LABS: PHOSPHORUS 4.6 mg/dL (2.5-4.9)
[2017-09-25] MEDS ORDERED: NOREPINEPHRINE 4 MG in DEXT 5% WATER 250 ML IV PRN (11:52)
[2017-09-25] MEDS ORDERED: PHENYLEPHRINE HCL 10 MG/ML 1ML (IV VIAL) IV ONE (11:57)
[2017-09-25] MEDS ORDERED: PHENYLEPHRINE 20 MG in DEXT 5% WATER 248 ML IV PRN (12:00)
[2017-09-25] MEDS ORDERED: NOREPINEPHRINE 8 MG in DEXT 5% WATER 242 ML IV PRN (12:00)
[2017-09-25 12:27] LABS: BG BASE EXCESS -4.6 mmol/L (-2.0-2.0); BG CARBOXYHEMOGLOBIN 0.9 % (0.5-1.5); BG DEOXYHEMOGLOBIN 36.3 % (0.0-5.0); BG FRACTION INSPIRED OXYGEN 100; BG HCO3 ACT 26.3 mmol/L (22.0-26.0); BG METHEMOGLOBIN 0.5 % (0.0-1.5); BG OXYGEN SATURATION 63.2 % (92.0-98.5); BG OXYHEMOGLOBIN 62.3 % (94.0-97.0); BG PCO2 87.1 mmHg (35.0-45.0); BG PH 7.098 (7.350-7.450); BG PO2 34.9 mmHg (75.0-100.0); BG SAMPLE SITE RIGHT BRACHIAL; BG TIDAL VOLUME(mL) 500 mL; BG TOTAL HEMOGLOBIN 10.5 g/dL (12.0-18.0); BG VENT MODE VENT - A/C; BG VENT RATE 14 set
[2017-09-25 12:52] LABS: PLATELET ESTIMATE NORMAL
[2017-09-25] MEDS ORDERED: PHENYTOIN SODIUM 1,000 MG in SODIUM CHLORIDE 0.9% 100 ML IV NR (13:00)
[2017-09-25 13:46] LABS: BG BASE EXCESS -6.8 mmol/L (-2.0-2.0); BG CARBOXYHEMOGLOBIN 0.3 % (0.5-1.5); BG DEOXYHEMOGLOBIN 80.6 % (0.0-5.0); BG FRACTION INSPIRED OXYGEN 100; BG HCO3 ACT 22.6 mmol/L (22.0-26.0); BG METHEMOGLOBIN 2.1 % (0.0-1.5); BG OXYGEN SATURATION 17.4 % (92.0-98.5); BG PCO2 68.3 mmHg (35.0-45.0); BG PH 7.137 (7.350-7.450); BG PO2 < 30.3 mmHg (75.0-100.0); BG SAMPLE SITE RIGHT BRACHIAL; BG TIDAL VOLUME(mL) 500 mL; BG TOTAL HEMOGLOBIN 9.4 g/dL (12.0-18.0); BG VENT MODE VENT - A/C; BG VENT RATE 20 set
[2017-09-25] MEDS ORDERED: SODIUM BICARBONATE 7.5% 0.9 MEQ/ML 50ML SYR IV ONE (15:16)
[2017-09-25] MEDS ORDERED: CALCIUM CHLORIDE 1GM/10ML SYR IV ONE (15:16)
== END 2017-09-25 14:36 | disposition expired | DRG 208 ==
LOC: ER 10:43 → EDBEDREQSVC 11:19 → 5EST 12:40 → EDBEDREQ 12:49 → ENRESERV 19:02 → MICUNO 09-25 11:30
PROVIDERS: ADMIT Family Medicine Adult Medicine; ATTEND Family Medicine Adult Medicine
PROC: 5A09357 Assistance with Respiratory Ventilation, Less than 24 Consecutive Hours, Continuous Positive Airway Pressure (ICD-10-PCS; 2017-09-19)
PROC: 30233N1 Transfusion of Nonautologous Red Blood Cells into Peripheral Vein, Percutaneous Approach (ICD-10-PCS; 2017-09-21)
PROC: 02HV33Z Insertion of Infusion Device into Superior Vena Cava, Percutaneous Approach (ICD-10-PCS; 2017-09-22)
PROC: B548ZZA Ultrasonography of Superior Vena Cava, Guidance (ICD-10-PCS; 2017-09-22)
PROC: 5A09357 Assistance with Respiratory Ventilation, Less than 24 Consecutive Hours, Continuous Positive Airway Pressure (ICD-10-PCS; 2017-09-22)
PROC: 0DJ08ZZ Inspection of Upper Intestinal Tract, Via Natural or Artificial Opening Endoscopic (ICD-10-PCS; principal; 2017-09-22 10:30)
PROC: 5A1935Z Respiratory Ventilation, Less than 24 Consecutive Hours (ICD-10-PCS; 2017-09-25)
PROC: 0BH17EZ Insertion of Endotracheal Airway into Trachea, Via Natural or Artificial Opening (ICD-10-PCS; 2017-09-25)
DX: J96.02 Acute respiratory failure with hypercapnia (principal); I26.99 Other pulmonary embolism without acute cor pulmonale; N17.0 Acute kidney failure with tubular necrosis; I46.9 Cardiac arrest, cause unspecified; E44.0 Moderate protein-calorie malnutrition; E11.40 Type 2 diabetes mellitus with diabetic neuropathy, unspecified; I50.23 Acute on chronic systolic (congestive) heart failure; G93.40 Encephalopathy, unspecified; I48.0 Paroxysmal atrial fibrillation; I49.5 Sick sinus syndrome; N17.9 Acute kidney failure, unspecified; E87.2 Acidosis; I11.0 Hypertensive heart disease with heart failure; E11.51 Type 2 diabetes mellitus with diabetic peripheral angiopathy without gangrene; L89.600 Pressure ulcer of unspecified heel, unstageable; D64.9 Anemia, unspecified; E78.5 Hyperlipidemia, unspecified; I27.20 Pulmonary hypertension, unspecified; D50.0 Iron deficiency anemia secondary to blood loss (chronic); E11.622 Type 2 diabetes mellitus with other skin ulcer; E78.00 Pure hypercholesterolemia, unspecified; I25.10 Atherosclerotic heart disease of native coronary artery without angina pectoris; I25.5 Ischemic cardiomyopathy; J45.909 Unspecified asthma, uncomplicated; L60.1 Onycholysis; Z95.1 Presence of aortocoronary bypass graft; Z86.73 Personal history of transient ischemic attack (TIA), and cerebral infarction without residual deficits; Z95.810 Presence of automatic (implantable) cardiac defibrillator; Z89.612 Acquired absence of left leg above knee; Z79.01 Long term (current) use of anticoagulants; Z82.49 Family history of ischemic heart disease and other diseases of the circulatory system; Z83.3 Family history of diabetes mellitus; Z86.711 Personal history of pulmonary embolism; Z89.512 Acquired absence of left leg below knee
CPT/HCPCS: 31500; 36415; 36569; 36600; 70450; 71045; 76770; 76937; 80048; 80053; 82270; 82375; 82805; 82962; 83735; 83880; 84100; 84155; 84165; 84484; 85014; 85018; 85025; 85379; 85610; 85730; 86038; 86160; 86850; 86900; 86920; 93005; 93306; 94002; 94640; 94660; 94664; 96374; 96375; 97166; 99291; A6261; C1725; J0171; J0282; J1165; J1815; J1940; J2250; J2370; J2405; J3010; J3475; J3490; J7050; J7620; P9016; A4315